=== PATIENT | male | born 1965 | race Caucasian/White ===

== ENCOUNTER → 2017-04-02 | Outpatient (CLI) | payer OTHER ==
--- NOTE | ~2017-04-02 | US37 ---
[facility] A Service of [facility] RADIOLOGY TEXT RESULTS PATIENT: STEPHANIE WILSON LOCATION: CNIV : 63 UNIT #: [id number] AGE: [address]: Nico Schumacher MD SEX: M ORDER DR: [id number] [facility] [address] [place], [place] [address] [id number] O MR#: [id number] Acc #: [id number] NAME: STEPHANIE WILSON : 1965 SEX: M STUDY DATE/TIME: 04/02/2017 14:29 UNIT: CNIV ROOM: STUDY DESCRIPTION: US Carotid W/Doppler Bilateral Attending Physician: Nico Schumacher M.D. Referring Physician: Nico Schumacher M.D. Ordering Physician: Nico Schumacher M.D. Primary Care Physician: No Primary Care Physician MEDICAL IMAGING REPORT This report is preliminary unless electronic signature is present EXAM Bilateral carotid duplex date of examination 04/02/2017 HISTORY Carotid bruit. FINDINGS There is patent flow seen throughout the right common carotid, internal carotid, and external carotid arteries. There is no significant atherosclerosis noted in the right common carotid artery. At the right carotid bifurcation there is some heterogeneous irregular appearing plaque. The right common carotid artery velocity has a velocity of 85 cm/sec. The right internal carotid artery has a peak velocity over end diastolic velocities of: Proximal 56/20 cm/sec, mid 73/27 cm/sec, distal 69/25 cm/sec. The right external carotid artery has a peak velocity of 98 cm/sec, and vertebral artery 42 cm/sec. The right ICA/CCA ratio is 0.85. Of note at the right lateral neck, there appears to be a large lymph node measuring 1.5 x 2.8 cm in diameter. There is patent flow seen throughout the left common carotid, internal carotid, and external carotid arteries. There is some mild, irregular appearing, heterogeneous plaque seen in the left common carotid artery, but no significant atherosclerosis noted at the carotid bifurcation or internal carotid artery. The left common carotid artery peak velocity is 100 cm/sec. The left internal carotid artery peak systolic over end diastolic velocities are: Proximal 93/23 cm/sec, mid 76/26 cm/sec, distal 79/34 cm/sec. The left external carotid artery peak velocity is 87 cm/sec, vertebral artery 33 cm/sec. The left ICA/CCA ratio is 0.93. IMPRESSION 1. There is mild atherosclerosis of the right carotid artery, which is STS. [facility] A Service of [facility] RADIOLOGY TEXT RESULTS PATIENT: STEPHANIE WILSON LOCATION: CNIV : 63 UNIT #: [id number] AGE: [address]: Nico Schumacher MD SEX: M ORDER DR: not hemodynamically significant by duplex criteria (less than 50%). 2. Large lymph node noted in the right neck measuring 1.5 x 2.8 cm. Correlation is suggested. 3. Mild atherosclerosis of the left carotid artery, which is not hemodynamically significant by duplex criteria (less than 50%). 4. Vertebral flow is antegrade bilaterally. Dictated by... Derek Taylor M.D. THIS IS AN ELECTRONICALLY VERIFIED REPORT Derek Taylor M.D. at 04/03/2017 9:07 AM ANNE-MARIE/marialuisa TD: 04/02/2017 18:38 JOB #: [id number] MEDICAL IMAGING REPORT Page 1 of 1 COPY
== END | disposition home or self-care (01) ==
LOC: CNIV 13:58
DX: R09.89 Other specified symptoms and signs involving the circulatory and respiratory systems (principal); I65.23 Occlusion and stenosis of bilateral carotid arteries
CPT/HCPCS: 93880